=== PATIENT | female | born 1950 | race Caucasian/White ===

== ENCOUNTER 2018-08-01 09:43 | Day surgery (SDC) | payer MEDICARE ==
[~2018-08-01] VITALS: Ht 154.9 cm; Wt 80.9 kg
[~2018-08-01 09:43] MED LIST: ACID REDUCER20 MG PO; ALLO100 PO; ASCO500 PO; BUPR150ER; BUPR150ER PO; CETI5 PO; CHOL10002; Coumadin5 MG PO; FURO40 PO; Fergon240 M1 PO; GABA300 PO; GABA400 PO; HYDACE10B PO; K-Dur20 MEQ PO; Klor-Con 1010 MEQ PO; LEVO-T25 MCG PO; Lovenox80 MG/0.8 SC; MAGOXI400 PO; METO25; METO25 PO; MORP15ER PO; MORP30ER PO; MULVITMIND PO; MYRBETRIQ25 MG PO; Norco 10-325 T1 EACH PO; OXYB5ER PO; Omeprazole20 M1; POTASSIUM GLUC500 MG PO; PROLIA60 MG/1 ML SQ; Pseudoephedrine30 MG; SERT50 PO; Synthroid/Lev0.05 MG PO; TOPI25 PO; TRAZ50; TRAZ50 PO; XARELTO10 MG PO; [UNRECOGNIZED DRUG - OTHER] PO
--- NOTE | 2018-08-01 10:20 | NUR ---
08/01/18 1020 Latricia Randall 1ST IV ATTEMPT LEFT HAND, INFILTRATED 2ND IV ATTEMPT LAC, 3RD IV ATTEMPT LFA,
== END 2018-08-01 12:07 | disposition home or self-care (01) ==
LOC: ORSCSDS 09:43
PROVIDERS: Surgery
PROC: 0DBH8ZX Excision of Cecum, Via Natural or Artificial Opening Endoscopic, Diagnostic (ICD-10-PCS; principal; 2018-08-01 10:45)
DX: Z12.11 Encounter for screening for malignant neoplasm of colon (principal); D12.0 Benign neoplasm of cecum; K57.30 Diverticulosis of large intestine without perforation or abscess without bleeding; Z86.010 Personal history of colon polyps; Z87.891 Personal history of nicotine dependence; I10 Essential (primary) hypertension; E03.9 Hypothyroidism, unspecified; F32.9 Major depressive disorder, single episode, unspecified; Z86.718 Personal history of other venous thrombosis and embolism; Z79.899 Other long term (current) drug therapy
CPT/HCPCS: 88305; J2704; J7120